=== PATIENT | male | born 1995 ===

== ENCOUNTER 2017-07-28 20:56 | Emergency (ER) | payer OTHER ==
[2017-07-28 21:05] VITALS: BP 145/82
[2017-07-28] MEDS ORDERED: Amoxicillin/Clavulanate TAB* 875 MG PO ONE (22:20)
[2017-07-28] MEDS ORDERED: Acetaminophen TAB* 325 MG PO ONE (22:21)
--- NOTE | 2017-07-28 22:34 | UC ---
HPI Febrile Illness - HPI Summary HPI Summary: 21 YEAR OLD MALE PRESENTS WITH COMPLAINS OF FEVER HIGH 105 FOR MULTIPLE MONTHS. I AM VERY CONCERNED ABOUT HIS FEVER AND WILL DO A COMPREHENSIVE WORKUP. - History of Current Complaint Chief Complaint: UCRespiratory Time Seen by Provider: 07/28/17 21:14 Hx Obtained From: Patient Onset/Duration: Started Days Ago Timing: Intermittent Initial Severity: Moderate Current Severity: Moderate Pain Scale Used: 0-10 Numeric - 5 Aggravating Factors: Nothing Alleviating Factors: Nothing Associated Signs and Symptoms: Chills, Sore Throat - Allergy/Home Medications Allergies/Adverse Reactions: Allergies Allergy/AdvReac Type Severity Reaction Status Date / Time No Known Allergies Allergy Verified 07/28/17 21:06 PMH/Surg Hx/FS Hx/Imm Hx Previously Healthy: Yes Infectious Disease History: No Infectious Disease History: Denies: Traveled Outside the [place] in Last 30 Days - Social History Alcohol Use: Occasionally Substance Use Type: Reports: None Smoking Status (MU): Never Smoked Tobacco Review of Systems Constitutional: Fever, Chills, Fatigue Skin: Negative Eyes: Negative ENT: Negative Respiratory: Negative Cardiovascular: Negative Gastrointestinal: Negative Genitourinary: Negative Motor: Negative Neurovascular: Negative Musculoskeletal: Negative Neurological: Negative Psychological: Negative All Other Systems Reviewed And Are Negative: Yes Physical Exam Triage Information Reviewed: Yes Vital Signs: Initial Vital Signs Temp 38.1 C 07/28/17 21:02 Pulse 115 07/28/17 21:02 Resp 12 07/28/17 21:02 BP 145/82 07/28/17 21:02 Pulse Ox 99 07/28/17 21:02 Eye Exam: Normal ENT: Positive: Pharyngeal erythema, Nasal congestion, Nasal drainage Dental Exam: Normal Neck exam: Normal Neck: Positive: 1 Respiratory Exam: Normal Cardiovascular Exam: Normal Abdominal Exam: Normal Musculoskeletal Exam: Normal Neurological Exam: Normal Psychological Exam: Normal Skin Exam: Normal Course/Dx - Diagnoses Clinic Provider Diagnoses: FEVER. CHILLS Discharge - Discharge Plan Condition: Stable Disposition: HOME Prescriptions: Acetaminophen TAB* [Tylenol TAB*] 650 mg PO Q8H PRN #100 tab PRN Reason: Fever Amoxicillin/Clavulanate TAB* [Augmentin TAB 875*] 875 mg PO BID #20 tab Patient Education Materials: Fever in Adults (ED) Referrals: No Primary Care Phys,NOPCP [Primary Care Provider] -
[2017-07-29 10:56] LABS: EBV Response YES
[2017-07-29 11:11] LABS: Hematocrit 46 % (42-52); Hemoglobin 15.4 g/dl (14.0-18.0); Mean Corpuscular HGB Conc 34 g/dl (31-36); Mean Corpuscular Hemoglobin 28 pg (27-31); Mean Corpuscular Volume 84 fL (80-94); Mean Platelet Volume 8 um3 (7.4-10.4); Red Blood Count 5.46 10^6/ul (4.0-5.4); Red Cell Distribution Width 14 % (10.5-15); White Blood Count 9.9 10^3/ul (3.5-10.8)
[2017-07-29 11:19] LABS: Manual Entry Verification BM; Mono Internal Control QC Line Present
[2017-07-29 11:25] LABS: Albumin 4.9 g/dL (3.2-5.2); BUN/Creatinine Ratio 11.5 (8-20); Calcium 9.7 mg/dL (8.6-10.3); EGFR African American 115.9 (>60); EGFR Non-African American 90.2 (>60); Potassium 4.2 mmol/L (3.5-5.0); Total Bilirubin 0.9 mg/dL (0.2-1.0); Total Protein 7.9 g/dL (6.4-8.9); Uric Acid 5.7 mg/dL (4.4-7.6)
[2017-07-30 14:33] LABS: EBV Capsid Ag IgG Ab Positive (Negative); EBV Capsid Ag IgM Ab Equivocal (Negative)
--- NOTE | 2017-07-30 21:11 | UC ---
Progress - Progress Note Progress Note: SPOKE TO PATIENT ABOUT HIS LABS, NO ACUTE CHANGES ON LAB. F/U WITH DR CASTELLANO ( ID).
== END 2017-07-28 22:45 | disposition home or self-care (01) ==
LOC: UCEAST 20:56
DX: R50.9 Fever, unspecified (principal); J02.9 Acute pharyngitis, unspecified; R53.83 Other fatigue
CPT/HCPCS: 36415; 80053; 81003; 83615; 84550; 85025; 86308; 86664; 86665; 87070; 87086; 87502; 87651; 99212; A9270-GY; G0463

== ENCOUNTER 2018-03-08 23:50 | Emergency (ER) | payer OTHER ==
[2018-03-09 00:39] LABS: ABS Basophils 0.1 10^3/ul (0-0.2); ABS Eosinophils 0 10^3/ul (0-0.6); ABS Lymphocytes 1.5 10^3/ul (1.0-4.8); ABS Monocytes 1.2 10^3/ul (0-0.8); ABS Neutrophils 8.3 10^3/ul (1.5-7.7); ABS Nucleated RBC 0 10^3/ul; Eosinophil % 0.2 % (0-6); Hematocrit 43 % (42-52); Hemoglobin 14.6 g/dl (14.0-18.0); Lymphocyte % 13.7 % (25-47); Mean Corpuscular HGB Conc 34 g/dl (31-36); Mean Corpuscular Hemoglobin 29 pg (27-31); Mean Corpuscular Volume 84 fL (80-94); Mean Platelet Volume 7.8 um3 (7.4-10.4); Nucleated Red Blood Cells % 0; Platelet Count 174 10^3/ul (150-450); Red Blood Count 5.07 10^6/ul (4.0-5.4); Red Cell Distribution Width 14 % (10.5-15); White Blood Count 11.1 10^3/ul (3.5-10.8)
[2018-03-09 00:56] LABS: EGFR Non-African American 81.1 (>60)
[2018-03-09] MEDS ORDERED: NS 0.9% 1000 ML* 1,000 ML IV ONE (01:26)
[2018-03-09] MEDS ORDERED: Ketorolac INJ* 30 MG/ML 1 ML VIAL IV PUSH ONE (01:26)
[2018-03-09 02:11] LABS: Urine Appearance Cloudy; Urine Blood Negative (Negative); Urine Color Amber; Urine Ketones Trace (Negative); Urine Protein 2+(100 mg/dL) (Negative); Urine Specific Gravity 1.031 (1.010-1.030); Urine Urobilinogen Negative (Negative)
[2018-03-09 03:53] VITALS: BP 128/75
--- NOTE | 2018-03-09 04:58 | ED ---
Alfonso Arnlod Nikita, scribed for Juno Villegas MD on 03/09/18 at 0136 . HPI Febrile Illness - HPI Summary HPI Summary: This patient is a 22 year old M presenting to ED with a chief complaint of fever of 104.6. The CC is described as intermittent every 3-4 weeks with an onset of within two hours and lasting 3 days to a week for each episode starting 3.5 years ago. The patient rates the pain 3/10 in severity. Symptoms aggravated by nothing. Symptoms alleviated by nothing. Patient reports sore throat, epistaxis, neck soreness, tachycardia, wheezing, R testicular pain ( couple days ago, now resolved), and ringing in his ears. Patient denies rhinorrhea, cough, abdominal pain, and difficulty urinating. - History of Current Complaint Chief Complaint: EDFever Time Seen by Provider: 03/09/18 01:19 Hx Obtained From: Patient Onset/Duration: Started Weeks Ago - past 3.5 years, Resolved Timing: Intermittent, Lasting Days Initial Severity: Mild Current Severity: Mild Pain Intensity: 3 Pain Scale Used: 0-10 Numeric Aggravating Factors: Nothing Alleviating Factors: Nothing Associated Signs and Symptoms: Other: - Patient reports sore throat, epistaxis, neck soreness, tachycardia, wheezing, R testicular pain (couple days ago, now resolved), and ringing in his ears. Patient denies rhinorrhea, cough, abdominal pain, and difficulty urinating. - Allergy/Home Medications Allergies/Adverse Reactions: Allergies Allergy/AdvReac Type Severity Reaction Status Date / Time No Known Allergies Allergy Verified 03/08/18 23:57 PMH/Surg Hx/FS Hx/Imm Hx Endocrine/Hematology History: Denies: Hx Diabetes Cardiovascular History: Denies: Hx Coronary Artery Disease Infectious Disease History: No Infectious Disease History: Denies: Traveled Outside the [place] in Last 30 Days - Family History Known Family History: Positive: Other Family History: recurrent fevers (father and uncle on mother's side), tonsillectomy, family is from [place] - Social History Alcohol Use: Occasionally Substance Use Type: Reports: None Smoking Status (MU): Never Smoked Tobacco Review of Systems Positive: Fever - intermittent every 3-4 weeks with an onset of within two hours and lasting 3 days to a week for each episode starting 3.5 years ago Positive: Epistaxis, Sore Throat, Other - neck soreness, ringing in his ears; denies rhinorrhea Positive: Other - tachycardia Positive: Other - wheezing. Negative: Cough Negative: Abdominal Pain Positive: other - R testicular pain (couple days ago, now resolved); denies difficulty urinating All Other Systems Reviewed And Are Negative: Yes Physical Exam - Summary Physical Exam Summary: Appearance: Well appearing, no pain distress Skin: warm, reflects adequate perfusion, diaphoretic Head/face: normal Eyes: EOMI, HEATHER ENT: normal Neck: supple, non-tender Respiratory: CTA, breath sounds present Cardiovascular: Tachycardic, pulses symmetrical Abdomen: non-tender, soft Bowel Sounds: present Musculoskeletal: normal, strength/ROM intact Neuro: normal, sensory motor intact, A&Ox3 Triage Information Reviewed: Yes Vital Signs On Initial Exam: Initial Vitals Temp Pulse Resp BP Pulse Ox 99.8 F 130 18 147/81 96 03/08/18 23:52 03/08/18 23:52 03/08/18 23:52 03/08/18 23:52 03/08/18 23:52 Vital Signs Reviewed: Yes Diagnostics - Vital Signs Vital Signs Temp Pulse Resp BP Pulse Ox 03/08/18 23:52 99.8 F 130 18 147/81 96 - Laboratory Lab Results: Lab Results 03/09/18 03/09/18 Range/Units 00:27 00:27 WBC 11.1 H (3.5-10.8) 10^3/ul RBC 5.07 (4.0-5.4) 10^6/ul Hgb 14.6 (14.0-18.0) g/dl Hct 43 (42-52) % MCV 84 (80-94) fL MCH 29 (27-31) pg MCHC 34 (31-36) g/dl RDW 14 (10.5-15) % Plt Count 174 (150-450) 10^3/ul MPV 7.8 (7.4-10.4) um3 Neut % (Auto) 74.6 (38-83) % Lymph % (Auto) 13.7 L (25-47) % [place] % (Auto) 10.9 H (0-7) % Eos % (Auto) 0.2 (0-6) % Baso % (Auto) 0.6 (0-2) % Absolute Neuts (auto) 8.3 H (1.5-7.7) 10^3/ul Absolute Lymphs (auto) 1.5 (1.0-4.8) 10^3/ul Absolute Monos (auto) 1.2 H (0-0.8) 10^3/ul Absolute Eos (auto) 0 (0-0.6) 10^3/ul Absolute Basos (auto) 0.1 (0-0.2) 10^3/ul Absolute Nucleated RBC 0 10^3/ul Nucleated RBC % 0 Sodium 139 (139-145) mmol/L Potassium 3.8 (3.5-5.0) mmol/L Chloride 102 (101-111) mmol/L Carbon Dioxide 29 (22-32) mmol/L Anion Gap 8 (2-11) mmol/L BUN 9 (6-24) mg/dL Creatinine 1.13 (0.67-1.17) mg/dL Est GFR ( Amer) 104.4 (>60) Est GFR (Non-Af Amer) 81.1 (>60) BUN/Creatinine Ratio 8.0 (8-20) Glucose 110 H (70-100) mg/dL Calcium 9.6 (8.6-10.3) mg/dL Total Bilirubin 0.70 (0.2-1.0) mg/dL AST 28 (13-39) U/L ALT 44 (7-52) U/L Alkaline Phosphatase 56 (34-104) U/L Total Protein 7.6 (6.4-8.9) g/dL Albumin 4.6 (3.2-5.2) g/dL Globulin 3.0 (2-4) g/dL Albumin/Globulin Ratio 1.5 (1-3) Result Diagrams: 03/09/18 00:27 03/09/18 00:27 Lab Statement: Any lab studies that have been ordered have been reviewed, and results considered in the medical decision making process. Re-Evaluation - Re-Evaluation First Eval Re-Evaluation Time: 03:44 Comment: The patient feels much better. Discussed results and discharge plan with the patient. Course/Dx - Course Course Of Treatment: pt currently being worked up for relapsing fever by ID -- was asked to come in for blood work when fevers occurring. Pt tachy and feverish without any other sx. Acute phase reactants all up. This was expected. His family is from [place] and father had similar as a child. 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 - Febrile Illness Differential Diagnoses: Abscess, Cellulitis, Fever of Unknown Origin, Pyelonephritis, Sepsis, Toxic Shock Syndrome, Other: - familial mediterranean fever, relapsing fever - Diagnoses Provider Diagnoses: Familial Mediterranean fever, Relapsing fever Discharge - Sign-Out/Discharge Documenting (check all that apply): Discharge - Discharge Plan Condition: Improved Disposition: HOME Patient Education Materials: Fever in Adults (ED) Referrals: [facility] - Chris ZAMORA [Primary Care Provider] - Catie GURROLA,Sebastian Serrano [Medical Doctor] - Additional Instructions: Tylenol/ibuprofen. Stay well hydrated. Return if worse, new symptoms or other concerns as discussed. Call Dr Haddad first thing in the morning to follow up. The documentation as recorded by the Alfonso hanna Nikita accurately reflects the service I personally performed and the decisions made by me, Juno Villegas MD.
== END 2018-03-09 04:10 | disposition home or self-care (01) ==
LOC: ED 23:50
DX: M04.1 Periodic fever syndromes (principal); R04.0 Epistaxis; J02.9 Acute pharyngitis, unspecified; R00.0 Tachycardia, unspecified; R50.9 Fever, unspecified
CPT/HCPCS: 36415; 80053; 81003; 81015; 84443; 85025; 85384; 86140; 86592; 87086; 87476; 87491; 87591; 87798; 99283; J1885